=== PATIENT | female | born 1930 | race Two or more races ===

== ENCOUNTER 2017-03-15 10:46 | Outpatient (CLI) | payer MEDICARE, MEDICAID ==
--- NOTE | 2017-03-15 11:30 | Diagnostic Imaging Report ---
Indication: Syncope, pain Technique: spiral acquisitions obtained through the brain. Angled axial and coronal 5 x 5 mm slices were reconstructed. No IV contrast utilized. Radiation dose was minimized using automated exposure control Total dose length product 1424 mGycm. CTDIvol(s) 70 mGy Comparison: none FINDINGS: No acute hemorrhage or edema. No mass effect or midline shift. There is age-related enlargement of the ventricles and extra axial CSF spaces. There is periventricular deep white matter ischemic change. Normal mcdonald-white differentiation. 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 Visualized orbits are unremarkable. There is minimal sphenoid sinus disease. Mastoids are clear. Intact calvarium. IMPRESSION: Chronic and age-related changes. Negative for acute intracranial bleed or mass effect The CT scanner at [facility] is accredited by the [employer] and the scans are performed using protocols designed to limit radiation exposure to as low as reasonably achievable to attain images of sufficient resolution adequate for diagnostic evaluation
== END 2017-03-15 12:46 | disposition home or self-care (01) ==
LOC: CAT 10:46
DX: R55 Syncope and collapse (principal); J32.3 Chronic sphenoidal sinusitis
CPT/HCPCS: 70450